=== PATIENT | male | born 1980 | race Caucasian/White ===

== ENCOUNTER 2024-10-11 17:18 | Emergency (ER) | payer BC, SELFPAY ==
[2024-10-11] VITALS (30 sets, daily range): BP systolic 150–180; BP diastolic 108–129; PULSE 82–103; TEMP 37.1; O2SAT 96; BMI 31.1
--- NOTE | 2024-10-11 17:40 | ECG_ITS ---
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 Measurements Intervals [place] Rate: 81 P: 50 [place]: 130 QRS: 61 QRSD: 88 T: -8 QT: 354 QTc: 392 Interpretive Statements 1100 Sinus rhythm 4068 Nonspecific Twave abnormality 9130 borderline ECG No previous ECG available for comparison Electronically Signed On 10-12-2024 14:35:25 EDT by JAYY BIRD M.D.
--- NOTE | 2024-10-11 17:41 | ED_ITS ---
HPI HPI - General Adult General Chief complaint: Recheck/Abnormal Lab/Rx Stated complaint: BP AT HOME HIGH Time Seen by Provider: 10/11/24 17:22 Source: patient Mode of arrival: walk-in History of Present Illness HPI narrative: 43-year-old male presents to the emergency department for elevated blood pressure. He has had some left-sided neck pain that he thinks was sustained at work when he was carrying some heavy items. He did not fall and the pain in the neck is getting better. He checked his blood pressure at home and it was high so he came here to get checked. No chest pain or palpitations or shortness of breath. No back pain or cough. The last time he had his blood pressure checked was about a year ago and it was borderline. Related Data Home Medications ?Medication ?Instructions ?Recorded ?Confirmed No Known Home Medications 10/11/24 10/11/24 Allergies Allergy/AdvReac Type Severity Reaction Status Date / Time No Known Drug Allergies Allergy Verified 10/11/24 17:28 Opioid HPI Opioid Management Most Recent Opioid Data: No Data to Display Review of Systems ROS Narrative A ten point review of systems is negative except as noted above. PFSH PFSH Social History Little interest or pleasure in doing things: not at all Feeling down, depressed, or hopeless: not at all Exam Narrative Exam Narrative: Nurses note and vital signs reviewed and patient is not hypoxic. General: The patient appears well and in no apparent distress. Patient is resting comfortably on cart. Skin: Warm, dry, no pallor noted. There is no rash noted. Head: Normocephalic, atraumatic; neck has full range of motion without mass or rash Eye: Normal conjunctiva, no drainage Ears, Nose, Mouth, and Throat: oral mucosa is moist. Nares patent. Cardiovascular: Regular Rate and Rhythm Respiratory: Patient is in no distress, no accessory muscle use, lungs are clear to auscultation, no wheezing, rales or rhonchi Back: non-tender GI: Soft and nontender Musculoskeletal: The patient has no evidence of calf tenderness, no pitting edema, symmetrical pulses noted bilaterally Neurological: A&O, normal speech Psychiatric: Cooperative Constitutional Vital Signs, click to edit/add: Last Vital Signs Temp 98.7 F 10/11/24 17:23 Pulse 85 10/11/24 17:23 Resp 16 10/11/24 17:23 BP 180/126 H 10/11/24 18:06 Pulse Ox 96 10/11/24 17:23 O2 Del Method Room Air 10/11/24 17:23 Course Vital Signs Vital signs: Vital Signs Temperature 98.7 F 10/11/24 17:23 Pulse Rate 85 10/11/24 17:23 Respiratory Rate 16 10/11/24 17:23 Blood Pressure 180/110 H 10/11/24 17:23 Pulse Oximetry 96 10/11/24 17:23 Oxygen Delivery Method Room Air 10/11/24 17:23 Temperature 98.7 F 10/11/24 17:23 Pulse Rate 85 10/11/24 17:23 Respiratory Rate 16 10/11/24 17:23 Blood Pressure 180/126 H 10/11/24 18:06 Pulse Oximetry 96 10/11/24 17:23 Oxygen Delivery Method Room Air 10/11/24 17:23 Medical Decision Making MDM Narrative Medical decision making narrative: The patient presents with elevated blood pressure. Blood work including renal function is normal. EKG shows sinus rhythm without acute change. He was ordered IV hydralazine for his blood pressure and the patient is signed out to Dr. Deutsch at change of shift. Differential Diagnosis Differential Diagnosis: Hypertension, renal failure Lab Data Lab results reviewed: Yes I reviewed the patient's lab results Labs: Lab Results 10/11/24 Range/Units 17:48 WBC 8.8 (4.0-11.0) 10^3/uL RBC 5.32 (4.70-6.10) 10^6/uL Hgb 17.3 (14.0-18.0) g/dL Hct 48.1 (42.0-54.0) % MCV 90.4 (80.0-94.0) fL MCH 32.5 (25.9-34.0) pg MCHC 36.0 H (29.9-35.2) g/dL RDW 12.3 (11.0-15.0) % Plt Count 267 (150-450) 10^3/uL MPV 9.4 L (9.5-13.5) fL Neut % (Auto) 55.9 (43.0-75.0) % Lymph % (Auto) 28.5 (20.5-60.0) % [place] % (Auto) 7.8 (1.7-12.0) % Eos % (Auto) 6.7 (0.9-7.0) % Baso % (Auto) 0.8 (0.2-2.0) % Neut # (Auto) 4.9 (1.4-6.5) 10^3/uL Lymph # (Auto) 2.5 (1.2-3.8) 10^3/uL [place] # (Auto) 0.7 (0.3-0.8) 10^3/uL Eos # (Auto) 0.6 (0.0-0.7) 10^3/uL Baso # (Auto) 0.1 (0.0-0.1) 10^3/uL Abs Immat Gran (auto) 0.03 (0.00-0.03) 10^3/uL Imm/Tot Granulo (auto) 0.3 (0.0-0.5) % Sodium 139 (136-145) mmol/L Potassium 3.8 (3.5-5.1) mmol/L Chloride 102 (98-107) mmol/L Carbon Dioxide 29.1 (21.0-32.0) mmol/L Anion Gap 11.7 BUN 15.0 (7.0-18.0) mg/dL Creatinine 1.16 (0.70-1.30) mg/dL Est GFR ( Amer) >60 (>=60 mL/min/1.73m^2) Est GFR (Non-Af Amer) >60 (>=60 mL/min/1.73m^2) BUN/Creatinine Ratio 12.9 Glucose 96 (74-106) mg/dL Calcium 9.4 (8.5-10.1) mg/dL ECG Data Attestation: I personally reviewed and interpreted this ECG as follows: (EKG on my interpretation shows normal sinus rhythm with rate of 81 and no acute change) Critical Care Time Critical Care Time Critical Care Time: Yes Total Critical Care Time: 35 Attestation: Due to the high probability of sudden and clinically significant deterioration in the patient's condition he/she required the highest level of my preparedness to intervene urgently I provided critical care time including documentation time, medication orders and management, reevaluation, vital sign assessment, ordering and reviewing of lab tests, ordering and reviewing of x-ray studies, and admission orders. Aggregate critical care time is 35 minutes including only time during which I was engaged in work directly related to his/her care and did not include time spent treating other patients simultaneously. Discharge Plan Discharge Patient Disposition: Still a Patient
[2024-10-11 17:57] LABS: Basophils Absolute Auto 0.1 10^3/uL (0.0-0.1); Basophils Percent Auto 0.8 % (0.2-2.0); Eosinophils Absolute Auto 0.6 10^3/uL (0.0-0.7); Eosinophils Percent Auto 6.7 % (0.9-7.0); Hematocrit 48.1 % (42.0-54.0); Hemoglobin 17.3 g/dL (14.0-18.0); Immature Granulocytes Abs Auto 0.03 10^3/uL (0.00-0.03); Immature Granulocytes Pct Auto 0.3 % (0.0-0.5); Lymphocytes Absolute Auto 2.5 10^3/uL (1.2-3.8); Lymphocytes Percent Auto 28.5 % (20.5-60.0); Mean Corpuscular Hemoglobin 32.5 pg (25.9-34.0); Mean Corpuscular Volume 90.4 fL (80.0-94.0); Mean Platelet Volume 9.4 fL (9.5-13.5); Monocytes Absolute Auto 0.7 10^3/uL (0.3-0.8); Monocytes Percent Auto 7.8 % (1.7-12.0); Neutrophils Absolute Auto 4.9 10^3/uL (1.4-6.5); Neutrophils Percent Auto 55.9 % (43.0-75.0); Platelet Count 267 10^3/uL (150-450); Red Blood Count 5.32 10^6/uL (4.70-6.10); Red Cell Distribution Width 12.3 % (11.0-15.0); White Blood Count 8.8 10^3/uL (4.0-11.0)
[2024-10-11 18:04] LABS: Anion Gap 11.7; BUN Creatinine Ratio 12.9; Calcium 9.4 mg/dL (8.5-10.1); Carbon Dioxide 29.1 mmol/L (21.0-32.0); Chloride 102 mmol/L (98-107); Estimated GFR (African America >60 (>=60 mL/min/1.73m^2); Estimated GFR (Non-African Ame >60 (>=60 mL/min/1.73m^2); Glucose 96 mg/dL (74-106); Potassium 3.8 mmol/L (3.5-5.1); Sodium 139 mmol/L (136-145)
[2024-10-11] MEDS: HYDRALAZINE HCL 20 MG/ML VIAL 10 MG IVP (18:40)
[2024-10-11] MEDS: CLONIDINE HCL 0.1 MG TABLET PO ×2 (20:24→21:55)
[2024-10-11 20:44] LABS: Troponin I High Sensitivity 4.9 pg/mL (4.0-76.1)
--- NOTE | 2024-10-11 21:23 | PC.NURSE ---
ambulated pt in ER nails with athletic monitor in place, Hr increases to 104, ER DR rice. Pt denies Cp and denies SOB with ambulation
== END 2024-10-11 22:03 | disposition home or self-care (01) ==
PROVIDERS: Internal Medicine; Emergency Provider Emergency Medicine; PCP Internal Medicine
DX: I10 Essential (primary) hypertension (principal)
CPT/HCPCS: 36415; 80048; 84484; 85025; 93005; 96374; 99285; J0360